=== PATIENT | female | born 1955 | race Caucasian/White ===

== ENCOUNTER → 2018-12-28 12:49 | Emergency (ER) | payer BC ==
[~2018-12-28] VITALS: Ht 162.6 cm; Wt 104.3 kg
[~2018-12-28 12:49] MED LIST: ATOR40TA PO; Aspir 8181 MG PO; Azor 10-40 MG1 EACH PO; CRUTCH USE; Crestor40 MG PO; Cymbalta30 MG PO; HYDACE5 PO; HYDSUL200 PO; IBUP800 PO; METF500C PO; Maxalt10 MG; Omeprazole20 M1 PO; SIMV40 PO; ZOLP10 PO
[2018-12-28 14:42] LABS: BASOPHILS ABSOLUTE AUTO 0.02 K/mm3 (0.00-0.23); BASOPHILS PERCENT AUTO 0 % (0-2); EOSINOPHILS ABSOLUTE AUTO 0.02 K/mm3 (0.00-0.68); EOSINOPHILS PERCENT AUTO 0 % (0-6); Hematocrit 39.4 % (33.0-51.0); Hemoglobin 12.3 g/dL (11.5-16.0); IMMATURE GRAN ABSOLUTE AUTO 0.01 K/mm3 (0.00-0.10); IMMATURE GRAN PERCENT AUTO 0 % (0-1); LYMPHOCYTES ABSOLUTE AUTO 0.85 K/mm3 (0.84-5.20); LYMPHOCYTES PERCENT AUTO 17 % (21-46); MONOCYTES ABSOLUTE AUTO 0.43 K/mm3 (0.16-1.47); MONOCYTES PERCENT AUTO 8 % (4-13); Mean Corpuscular HGB 28.7 pg (26.0-34.0); Mean Corpuscular HGB Conc 31.2 g/dL (31.5-36.5); Mean Corpuscular Volume 92 fL (80-100); Mean Platelet Volume 11.7 fL (9.1-12.4); NEUTROPHILS ABSOLUTE AUTO 3.79 K/mm3 (1.96-9.15); NEUTROPHILS PERCENT AUTO 74 % (41-73); Platelet Count 189 K/mm3 (150-400); Red Blood Cell Count 4.29 M/mm3 (3.80-5.20); White Blood Cell Count 5.12 K/mm3 (4.00-11.30)
[2018-12-28 15:03] LABS: Alanine Aminotransfer (ALT/SGP 38 U/L (12-78); Albumin, Blood 3.5 g/dL (3.4-5.0); Albumin/Globulin Ratio 1.2 (0.8-1.8); Alk Phos 80 U/L (50-136); Anion Gap 5 mmol/L (6-16); Aspartate Aminotrans (AST/SGOT 33 U/L (12-37); Bilirubin, Total 0.3 mg/dL (0.1-1.0); Blood Urea Nitrogen 12 mg/dL (8-24); Bun/Creatinine Ratio 19.4 (12.0-20.0); CO2, Blood 28 mmol/L (21-32); Chloride, Blood 110 mmol/L (98-108); Creatinine, Blood 0.62 mg/dL (0.40-1.00); Glomerular Filtration Rate >60 (60-); Glucose, Blood 91 mg/dL (70-99); Potassium, Blood 4.2 mmol/L (3.5-5.5); Sodium, Blood 143 mmol/L (136-145); Total Protein, Blood 6.5 g/dL (6.4-8.2)
== END | disposition short-term general hospital (02) ==
LOC: ER 12:49
PROVIDERS: Emergency Medicine
DX: S82.141A Displaced bicondylar fracture of right tibia, initial encounter for closed fracture (principal); E78.00 Pure hypercholesterolemia, unspecified; K21.9 Gastro-esophageal reflux disease without esophagitis; I10 Essential (primary) hypertension; Z88.2 Allergy status to sulfonamides; Z79.899 Other long term (current) drug therapy; Z79.82 Long term (current) use of aspirin; Z79.84 Long term (current) use of oral hypoglycemic drugs; W11.XXXA Fall on and from ladder, initial encounter
CPT/HCPCS: 29505; 36415; 51702; 73562-RT; 73700; 76377; 80053; 85025; 85730; 99285-25; J1170

== ENCOUNTER → 2022-03-01 | Outpatient (CLI) | payer OTHER ==
[2022-03-01 15:38] LABS: Microalb/Creat Ratio UR, Rand Unable to Calculate mg/g (0.000-30.000); Microalbumin, Random Urine <5.000 mg/L (0.000-20.000)
== END ==
LOC: LAB 12:30 → LAB SHORT 12:30
PROVIDERS: Physician Assistant
DX: E11.9 Type 2 diabetes mellitus without complications (principal)
CPT/HCPCS: 82043; 82570